=== PATIENT | female | born 1950 | race Caucasian/White ===

== ENCOUNTER 2016-11-06 16:31 | Emergency (ER) | payer OTHER ==
[2016-11-06 16:49] LABS: MANUAL DIFF NEEDED? NO
[2016-11-06 16:56] LABS: URINE CULTURE NEEDED? NO; URINE MICRO REVIEW NEEDED? NO; URINE SOURCE CLEAN CATCH
[2016-11-06 16:59] LABS: BILIRUBIN URINE NEGATIVE (NEGATIVE); BLOOD URINE NEGATIVE (NEGATIVE); COLOR YELLOW; GLUCOSE URINE NEGATIVE (NEGATIVE); LEUKOCYTES URINE NEGATIVE (NEGATIVE); NITRITE URINE NEGATIVE (NEGATIVE); PROTEIN URINE NEGATIVE (NEGATIVE); SP GRAVITY URINE 1.006; TURBIDITY URINE CLEAR (CLEAR); UROBILINOGEN URINE NORMAL (NORMAL)
[2016-11-06 17:01] LABS: UR EPITHELIAL CELLS <10 /HPF (<10); URINE BACTERIA NEGATIVE /HPF; URINE RBC <10 /HPF (<10); URINE WBC <10 /HPF (<10)
[2016-11-06 17:04] LABS: BASO% 0.3 % (0.0-0.8); EOS# 0.19 X1000 (0.0-0.7); EOS% 1.2 % (0.0-10.0); HEMATOCRIT 50.6 % (37.0-47.0); HEMOGLOBIN 17.6 g/dL (12.0-16.0); IMM GRAN# 0.04 X1000 (0.0-0.04); IMM GRAN% 0.2 % (0.0-0.5); LYMPH# 4.34 X1000 (1.2-3.4); LYMPH% 26.7 % (20.5-51.1); MCH 30.9 PG (27-31); MCHC 34.8 g/dL (33-37); MCV 88.9 FL (81-99); MONO# 1.84 X1000 (0.11-0.59); MONO% 11.3 % (1.7-9.3); MPV 10.6 FL (7.4-10.4); NEUT% 60.3 % (42.2-75.2); PLT 248 X1000 (130-400); RBC 5.69 XMIL (4.2-5.4)
[2016-11-06 17:36] LABS: AGAP 15; ALBUMIN 4.3 g/dL (3.5-5.0); ALKALINE PHOSPHATASE 119 U/L (32-104); AMYLASE 55 U/L (20-200); BUN 11 mg/dL (8-22); CALCIUM 9.7 mg/dL (8.8-10.2); CHLORIDE 100 mmol/L (98-107); COSMO 279; GOT 19 U/L (10-30); GPT 12 U/L (10-36); LIPASE 21 U/L (13-60); SODIUM 140 mmol/L (136-145); TCO2 25 mmol/L (25-35); TOTAL BILIRUBIN 0.44 mg/dL (0.20-1.00); TOTAL PROTEIN 7.3 g/dL (6.3-8.3)
[2016-11-06] MEDS ORDERED: ZOFRAN IV ONE (18:14)
[2016-11-06] MEDS ORDERED: DILAUDID IV ONE (18:14)
--- NOTE | 2016-11-06 21:13 | PROVIDER DOCUMENTATION ---
HPI-Abdominal Pain/GI Problem - General Chief Complaint: Abdominal Pain Stated Complaint: N/V Time Seen by Provider: 11/06/16 18:10 Source: patient Allergies/Adverse Reactions: Patient Allergies Allergy/AdvReac Type Severity Reaction Status Date / Time morphine Allergy Unknown Verified 11/06/16 20:44 Home Medications: Home Medication List Medication Instructions Recorded Confirmed Last Taken Type Albuterol [Albuterol Neb] 2.5 mg INH Q6H PRN PRN #0 neb 08/05/14 11/06/16 Rx ATORVAstatin [Lipitor] 10 mg PO QHS 01/21/16 11/06/16 11/05/16 History Montelukast Sodium 10 mg PO DAILY 01/21/16 11/06/16 11/06/16 History Omeprazole 40 mg PO DAILY 01/21/16 11/06/16 11/06/16 History Ropinirole [Requip] 1 mg PO QHS 01/21/16 11/06/16 11/05/16 History Trazodone [Desyrel] 100 mg PO QHS 01/21/16 11/06/16 11/05/16 History Levothyroxine [Synthroid] 75 microgm PO DAILY #30 tablet 01/22/16 11/06/1611/06 Rx Dicyclomine [Bentyl] 20 mg PO BID PRN #14 capsule 11/06/16 Unknown Rx Mirtazapine 15 mg PO HS 11/06/16 11/06/16 11/05/16 History Ondansetron [Zofran] 4 mg PO Q6H PRN PRN #20 tablet 11/06/16 Unknown Rx - History of Present Illness-ABD Nature of Presenting Problems: 66 yof that started to have Abd pain with N/V/D last night. Pain continued to get worse. Abdominal Pain Onset Location: reports: generalized abdomen Pain Radiation: reports: no radiation Quality of Pain: reports: cramping, pressure Severity in ED: reports: moderate Onset/Duration: reports: 24 hours ago Timing: reports: still present, getting worse Activities at Onset: reports: none Exposure to sick contacts?: Yes Modifying Factors: improves with: nothing Review of Systems - Adult - REVIEW OF SYSTEMS - ADULT Constitutional: reports: see HPI. denies: no symptoms reported, chills, fever, fatique, night sweats, weight gain, weight loss, other Eyes: reports: no symptoms reported. denies: see HPI, discharge, dry eyes, decreased vision, blurred vision, double vision, eye pain, redness, other Ears, Nose, Mouth & Throat: reports: no symptoms reported. denies: see HPI, ear discharge, ear pain, hearing loss, tinnitus, epistaxis, sinus problem, nose pain, loose teeth, mouth/dental pain, mouth swelling, hoarseness, throat pain, throat swelling, other Cardiovascular: reports: no symptoms reported. denies: see HPI, chest pain, edema, heart murmur, irregular heart rate, orthopnea, palpitations, poor circulation, PND, syncope, other Respiratory: reports: no symptoms reported. denies: see HPI, chronic cough, cough, dyspnea on exertion, excessive sputum production, hemoptysis, pleurisy, shortness of breath, wheezing, other Gastrointestinal: reports: see HPI, abdominal pain, diarrhea, nausea, vomiting. denies: no symptoms reported, hematemesis, constipation, difficulty swallowing , frequent heartburn, poor appetite, rectal bleeding, other Genitourinary: reports: no symptoms reported. denies: see HPI, dysuria, discharge, frequency, flank pain, frequent UTI's, hematuria, hesitency, incontinence, urinary retention, urgency, other Musculoskeletal: reports: no symptoms reported. denies: see HPI, bone pain, back pain, frequent leg cramps, joint pain, joint swelling, muscle aches, muscle weakness, neck pain, other Integumentary: reports: no symptoms reported. denies: see HPI, hives, hair loss , itching, mole changes, nail changes, rash, skin sores/ulcer, skin thickening, other Neurological: reports: no symptoms reported. denies: see HPI, ataxia, dizziness /vertigo, headache/migraines, loss of balance, numbness, paresthesia, seizure, slurred speech, syncope, tremors, other Psychiatric: reports: no symptoms reported. denies: see HPI, anxiety, anti- depressant use, alcohol/drug dependence, depression, emotional problems, insomnia, panic attacks, suicidal thoughts, other Endocrine: reports: no symptoms reported. denies: see HPI, change in skin pigment, excessive sweating, goiter, cold intolerance, heat intolerance, increased hunger, increased thirst, polyuria, other Hematologic/Lymphatic: reports: no symptoms reported. denies: see HPI, blood clots, easy bruising, low blood count, lymphedema, prolonged bleeding, swollen lymph nodes, transfusions, other All Other Systems: Reviewed and Negative Past History - Adult - PAST MEDICAL HISTORY-ADULT Review of Records: reports: Old Records Reviewed, Nursing Assessment Review, Medications Reviewed, Social history reviewed & non-contributory. Cardiovascular: reports: HTN, hyperlipidemia Respiratory: reports: COPD Gastrointestinal: reports: GERD Obstetrical/Gynecological: reports: denies history Genitourinary: reports: denies history Musculoskeletal: reports: denies history Neurological: reports: denies history Psychiatric: reports: denies history Endocrine/Immune: reports: thyroid disorder - PRIOR SURGERIES/PROCEDURES Surgical/Procedure History: reports: cholecystectomy, BTL, , bowel surgery (colostomy) - IMMUNIZATION STATUS Childhood Immunizations: See Nurse Assessment Flu Vaccine: See Nurse Assessment - FAMILY HISTORY Family History: reviewed, not pertinent Physical Exam-General - PHYSICAL EXAM-ADULT Initial Vital Signs Reviewed: Yes - CONSTITUTIONAL General Appearance: appears well, alert, no apparent distress. negative: mild distress, moderate distress, severe distress, cachetic, obese, thin, anxious, lethargic, slow to respond, obtunded, combative, other - EYES Eyes: PERRL/EOMI, pink conjunctivae. negative: fundi clear, no AV nicking, anisocoria, conjuctival exudate, EOM palsy, meningismus, pale conjunctivae, photophobia, sclera injected, scleral icterus, subconjunctival hemorrhage, sunken eyes, other - HEAD, EARS, NOSE, MOUTH & THROAT HENMT: normocephalic/atraumatic, moist mucous membranes, normal ENT inspection, TMs normal, pharynx normal. negative: angioedema, dental decay, hearing deficit , pharyngeal erythema, tonsillar exudate, TM abnormal, TM obscurred by cerumen, frontal tenderness, maxillary tenderness, other - NECK Neck: non-tender, full range of motion, supple, normal inspection. negative: Brudzinski's sign, carotid bruit, C-spine tenderness, limited range of motion, lymphadenopathy, meningismus, trachial deviation, tender lateral, tender midline , thyromegaly, other - RESPIRATORY Respiratory: chest non-tender, lungs clear, normal breath sounds, no pleuratic chest pain, no respiratory distress, no accessory muscle use. negative: respiratory distress, decreased breath sounds, accessory muscle use, crackles, rales, rhonchi, stridor, wheezing, dull on percussion, prolonged expiration, pain on inspiration, plerual rub, retractions, splinting, decreased rate, increased rate, crepitus, other - CARDIOVASCULAR Cardiovascular: normal peripheral pulses, regular rate, rhythm, no edema, no gallop, no JVD, no murmur. negative: JVD, bradycardia, tachycardia, diastolic murmur, systolic murmur, gallop/S3, gallop/S4, extra beats, friction rub, irregularly irregular, PMI displaced laterally, other - CHEST (BREASTS) Chest/Breast: deferred - GASTROINTESTINAL (ABDOMEN) Abdominal Exam: normal bowel sounds, soft, no organomegaly, no pulsatile mass, tenderness (Generalized). negative: non tender, abdominal bruit, abnormal bowel sounds, distended, guarding, rigid, rebound, hernia, mass, hepatomegaly, spleenomegaly, McBurney's point tenderness, Alex's sign, obturator sign, prominent aortic pulsations, psoas, Rovsing's sign, other - GENITOURINARY Female Genitalia/Pelvic Exam: deferred. negative: external exam normal, speculum exam normal, bimanual exam normal, no cerv. motion tender, no masses, active bleeding, blood, cervicitis, discharge, herpes-like ulcerations, lesions , mass, tender w/ cervical motion, tender adnexa, tender uterus, ulcers, other Rectal Exam: deferred. negative: normal exam, normal rectal tone, black stool, blood streaked stool, decreased tone, hemorrhoids, mass, prostate enlarged/ nodule, tenderness, other - LYMPHATIC Lymphatic: no adenopathy. negative: axilla node tender, cervical node tenderness, inguinal node tender, enlargement, striations, streaking, other - MUSCULOSKELETAL Back Exam: normal inspection, no CVA tenderness, no vertebral tenderness. negative: CVA tenderness, decreased range of motion, ecchymosis, kyphosis, lordosis, muscle spasm, scoliosis, swelling, vertebral tenderness, other Extremity: normal range of motion, non-tender, normal gait, normal inspection, no pedal edema, no calf tenderness, normal capillary refill. negative: pelvis stable, abnormal NV exam, calf tenderness, deformity, erythema, inflammation, joint effusion, pulse deficit, pedal edema, slow capillary refill, swelling, tenderness, other - SKIN Integumentary: normal color, normal turgor, warm/dry. negative: abrasion(s), blanching, cyanosis, diaphoresis, decubitus, dependent lividity, ecchymosis, embolic lesions, erythema, signs of IVDA, jaundice, laceration(s), mottled, pallor, petechiae, purpura, rash, swelling, tenderness, warm, zoster-like rash, other - NEUROLOGIC Neurologic: grossly normal, no motor/sensory deficits. negative: hotel maid II-XII nml as tested, abnormal cerebellar tests, abnormal hotel maid II-XII, abnormal gait, aphasia, EOM palsy, facial droop, focal weakness, motor weakness, sensory deficit, negative romberg's sign, positive romberg's sign, other - PSYCHIATRIC Psych/Mental Status: normal mood/affect, normal thought content, normal thought process, oriented x 3. negative: disoriented x 3, anxious, disheveled, depressed affect, paranoid, tearful, other Progress - PLAN OF CARE/RESULTS Progress/Plan/Lab Results: Laboratory Tests 11/06/16 11/06/16 11/06/16 16:43 16:43 16:50 WBC 16.25 H RBC 5.69 H Hgb 17.6 H Hct 50.6 H MCV 88.9 MCH 30.9 MCHC 34.8 RDW Std Deviation 15.9 H Plt Count 248 MPV 10.6 H Immature Gran % (Auto) 0.2 Neut % (Auto) 60.3 Lymph % (Auto) 26.7 [place] % (Auto) 11.3 H Eos % (Auto) 1.2 Baso % (Auto) 0.3 Immature Gran # (Auto) 0.04 Neut # (Auto) 9.79 H Lymph # (Auto) 4.34 H [place] # (Auto) 1.84 H Eos # (Auto) 0.19 Baso # (Auto) 0.05 Sodium 140 Potassium 4.0 Chloride 100 Carbon Dioxide 25 Anion Gap 15 BUN 11 Creatinine 0.8 Estimated GFR/1.73 m2 > 60 BUN/Creatinine Ratio 14 Glucose 105 H Calculated Osmolality 279 Calcium 9.7 Total Bilirubin 0.44 AST 19 ALT 12 Alkaline Phosphatase 119 H Total Protein 7.3 Albumin 4.3 Globulin 3.0 Albumin/Globulin Ratio 1.4 Amylase 55 Lipase 21 Urine Source CLEAN CATCH Urine Color YELLOW Urine Turbidity CLEAR Urine pH 7.0 Ur Specific [place] 1.006 Urine Protein NEGATIVE Ur Glucose (Stick) NEGATIVE Ur Ketones (Stick) NEGATIVE Urine Blood NEGATIVE Urine Nitrite NEGATIVE Urine Bilirubin NEGATIVE Urobilinogen Dipstick NORMAL Urine Leukocytes NEGATIVE Urine WBC (Auto) <10 Urine RBC (Auto) <10 U Epithel Cells (Auto) <10 Urine Bacteria (Auto) NEGATIVE Orders Category Date Time Status Saline Loc NOW Care 11/06/16 18:14 Active ABDOMEN/PELVIS W/CONTRAST [CT] Stat Exams 11/06/16 18:13 Taken AMYLASE [CHEM] Stat Lab 11/06/16 16:43 Completed CBC WITH ELECTRONIC DIFF [HEME] Stat Lab 11/06/16 16:43 Completed COMPREHENSIVE METABOLIC PANEL [CHEM] Stat Lab 11/06/16 16:43 Completed LIPASE [CHEM] Stat Lab 11/06/16 16:43 Completed URINALYSIS W/POSS RFLX CULT [URINALYSIS] Stat Lab 11/06/16 16:50 Completed Hydromorphone [Dilaudid] Med 11/06/16 18:14 Discontinued 1 mg IV NOW ONE Ondansetron [Zofran] Med 11/06/16 18:14 Discontinued 4 mg IV NOW ONE - CT/MRI 1 CT Study: Abdomen Impression: Abnormal (Inflammation around intestines. Appears to look like colitis due to viral infection. Read by radiologist) Departure - Departure Time of Disposition Order: 21:10 DIAGNOSIS: Gastroenteritis and colitis, viral Disposition: HOME 01 Certified Medical Emergency: Emergent Condition: Stable Additional Instructions: Drink plenty of fluids to prevent dehydration. ED Follow Up Instructions: You have been treated by a care provider in the Emergency Department. These instructions are being provided to you so you can have an understanding of how to care for yourself upon discharge. Upon discharge from the Emergency Department, you are responsible for making arrangements for follow-up care by a physician of your choice. Take all prescribed medications as directed. Return to the Emergency Department immediately for any new or worsening symptoms. You may call the Physician Referral phone number at [phone] to obtain a list of Physicians who are taking new patients. Prescriptions: Dicyclomine [Bentyl] 20 mg PO BID PRN #14 capsule PRN Reason: Abdominal pain Ondansetron [Zofran] 4 mg PO Q6H PRN PRN #20 tablet PRN Reason: Nausea Referrals: Moshe Newell MD [Primary Care Provider] - Instructions: Gastritis, Adult, [id number], Colitis Attestation - Physician/ SRIDHAR Attestation Patient care was provided by Advanced Practice Provider:: Yes Advanced Practice Provider:: Rodrigue Pond Advanced Practice Provider documentation review:: The Mid-level provider documentation, treatment plan and medical decision making was reviewed by the physician who agrees with all treatment and medical decision making by the MLP.
[2016-11-06 21:39] VITALS: BP 94/63
--- NOTE | 2016-11-07 10:24 | Diag Imaging Result Document ---
PROCEDURE NAME: ABDOMEN/PELVIS W/CONTRAST - 11/06/2016 CT OF THE ABDOMEN WITH INTRAVENOUS CONTRAST: FINDINGS: There is fibrosis in the lingula which was also present on 10/07/2016. There is atherosclerotic calcification in the aorta and its branches. There is mild infrarenal abdominal aortic dilatation to a maximum dimension of 1.9 cm. This has not changed appreciably since the previous study. There is a small hiatal hernia. There has been a previous ventral hernia repair. There is still a defect on the left side in the upper pelvis through which a loop of small bowel herniates. This finding was also present at the time of the previous study of 10/07/2016 and has not changed appreciably. The liver, spleen, adrenal glands, and pancreas are unremarkable in appearance. There is some scarring in the left kidney which may be due to previous pyelonephritis or vascular disease. These findings were also present at the time of the previous contrast study of 08/27/2016. CT OF THE PELVIS WITH INTRAVENOUS CONTRAST: FINDINGS: There is fluid in the ascending colon. Postsurgical changes are present in the colon and small bowel. There is fecalized contents in a dilated loop of small bowel in the pelvis. This is similar in appearance to the previous study of 08/27/2016 and that of 10/07/2016. 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 Minimal pelvic fluid is present. There is some gas in the rectum. The regional skeleton is stable in appearance. IMPRESSION: Postsurgical changes. Persistent ventral hernia. The apparent stasis and dilatation of the distal small bowel loops which has remained relatively constant since at least 08/27/2016. Presumably, this is at least in part due to a distal stricture. There has actually been slight improvement with respect to the dilatation of the small bowel since the previous study of 10/07/2016.
== END 2016-11-06 21:58 | disposition home or self-care (01) ==
LOC: ED 16:31
DX: A08.4 Viral intestinal infection, unspecified (principal); K43.9 Ventral hernia without obstruction or gangrene; R10.84 Generalized abdominal pain; R11.2 Nausea with vomiting, unspecified; R19.7 Diarrhea, unspecified; R10.817 Generalized abdominal tenderness; I10 Essential (primary) hypertension; E78.5 Hyperlipidemia, unspecified; Z79.899 Other long term (current) drug therapy; J44.9 Chronic obstructive pulmonary disease, unspecified; K21.9 Gastro-esophageal reflux disease without esophagitis; E07.9 Disorder of thyroid, unspecified; Z93.3 Colostomy status
CPT/HCPCS: 74177; 80053; 81001; 82150; 83690; 85025; J1170; J2405; Q9967

== ENCOUNTER 2016-12-29 11:33 | Observation (INO) ==
[2016-12-29] MEDS ORDERED: ZOFRAN IV PRN (12:50)
--- NOTE | 2016-12-29 13:21 | Diag Imaging Result Document ---
PROCEDURE NAME: CHEST-2 VIEWS - 12/29/2016 CHEST X-RAY, 2 VIEWS: COMPARISON: 08/09/2016. FINDINGS: Stable COPD. Stable calcified granuloma in the left lung base. No new or focal infiltrates. Heart size is grossly normal. IMPRESSION: Advanced COPD. No acute disease.
--- NOTE | 2016-12-29 13:44 | Diag Imaging Result Document ---
PROCEDURE NAME: ABDOMEN/PELVIS W/O CONTRAST - 12/29/2016 CT ABDOMEN AND PELVIS WITHOUT CONTRAST: COMPARISON: 11/06/2016. FINDINGS: There is mild fibrosis involving the lingula that is stable. There appears to have been a prior cholecystectomy. There are calcified granulomata in the spleen. The right kidney is located in the pelvis. The left kidney is normally situated. There appears to have been a prior ventral wall hernia repair and surgical mesh is in place. There is a recurrent small hernia adjacent to the surgical mesh on the left that contains a loop of small bowel; however, it is stable as compared to the previous study. Similar to previous studies, there is some distention of multiple loops of small bowel. The small bowel contains feculent material like the previous study. As stated previously, this is probably at least, in part, due to partial small bowel obstruction. There are several bowel staple lines indicating prior bowel surgery. There has been a previous hysterectomy. No significant free gas or free fluid is identified. Otherwise, the abdomen and pelvis is essentially stable as compared to the fairly recent previous study. IMPRESSION: 1. Left paracentral ventral wall hernia containing a loop of bowel as well as multiple moderately distended loops of small bowel containing feculent material that is presumed due to at least partial bowel obstruction. However, it should be noted that this is essentially stable as compared to a couple previous studies. 2. Otherwise, the abdomen and pelvis are essentially stable.
[2016-12-29] MEDS: DILAUDID IV PRN ×2 (14:34→20:25)
[2016-12-29] MEDS: PROTONIX IV SCH (14:35)
[2016-12-29] MEDS: LOVENOX SUBQ SCH (14:35)
[2016-12-29] MEDS: SODIUM CHLORIDE 0.9% INJ SCH (14:35)
[2016-12-29] MEDS: NS 1,000 ML IV SCH (14:35)
[2016-12-29 15:23] LABS: URINE CULTURE NEEDED? NO; URINE MICRO REVIEW NEEDED? NO; URINE SOURCE CLEAN CATCH
[2016-12-29 15:36] LABS: BILIRUBIN URINE NEGATIVE (NEGATIVE); BLOOD URINE NEGATIVE (NEGATIVE); COLOR YELLOW; GLUCOSE URINE NEGATIVE (NEGATIVE); LEUKOCYTES URINE NEGATIVE (NEGATIVE); NITRITE URINE NEGATIVE (NEGATIVE); PROTEIN URINE NEGATIVE (NEGATIVE); SP GRAVITY URINE 1.014; TURBIDITY URINE CLEAR (CLEAR); UROBILINOGEN URINE NORMAL (NORMAL)
[2016-12-29 15:38] LABS: UR EPITHELIAL CELLS <10 /HPF (<10); URINE BACTERIA NEGATIVE /HPF; URINE RBC <10 /HPF (<10); URINE WBC <10 /HPF (<10)
[2016-12-29 16:00] LABS: MANUAL DIFF NEEDED? NO
[2016-12-29 16:04] LABS: BASO% 0.5 % (0.0-0.8); EOS# 0.15 X1000 (0.0-0.7); EOS% 1.4 % (0.0-10.0); HEMATOCRIT 49.8 % (37.0-47.0); HEMOGLOBIN 16.9 g/dL (12.0-16.0); IMM GRAN# 0.02 X1000 (0.0-0.04); IMM GRAN% 0.2 % (0.0-0.5); LYMPH# 3.69 X1000 (1.2-3.4); MCHC 33.9 g/dL (33-37); MCV 91.4 FL (81-99); MONO# 1.27 X1000 (0.11-0.59); MPV 10.2 FL (7.4-10.4); NEUT% 50.9 % (42.2-75.2); PLT 255 X1000 (130-400); RBC 5.45 XMIL (4.2-5.4)
[2016-12-29 16:13] LABS: INR 1.03; PROTIME 10.8 Seconds (9.2-11.7); PTT 30.1 Seconds (22.0-36.0)
[2016-12-29 16:34] LABS: AGAP 17; ALBUMIN 3.9 g/dL (3.5-5.0); ALKALINE PHOSPHATASE 120 U/L (32-104); AMYLASE 55 U/L (20-200); BUN 12 mg/dL (8-22); CALCIUM 8.7 mg/dL (8.8-10.2); CHLORIDE 103 mmol/L (98-107); COSMO 286; GOT 18 U/L (10-30); GPT 15 U/L (10-36); LIPASE 25 U/L (13-60); MAGNESIUM 2.1 mg/dL (1.5-2.7); POTASSIUM 3.8 mmol/L (3.5-5.1); SODIUM 143 mmol/L (136-145); TCO2 23 mmol/L (25-35); TOTAL BILIRUBIN 0.42 mg/dL (0.20-1.00)
[2016-12-29] MEDS: DUONEB (A & A) INH SCH ×2 (19:45→23:10)
[2016-12-29] MEDS: REMERON PO SCH (20:24)
[2016-12-29] MEDS: REQUIP PO SCH (20:24)
[2016-12-29] MEDS: LIPITOR PO SCH (20:24)
--- NOTE | 2016-12-29 21:21 | HISTORY AND PHYSICAL ---
CHIEF COMPLAINT: Abdominal pain. HISTORY OF PRESENT ILLNESS: Ms. Hester is a 66-year-old white female patient complaining of pain in the abdomen going on for 2 days. The pain is moderate in intensity, cramping in nature. Started 2 days ago. Gradually getting worse. The patient claims night before last she vomited multiple times. Last night, the pain was so intense she could not rest or sleep at all. She stayed awake all night because of the pain. Patient took her pain medicine which was Percocet 10, 2-3 times a day without significant relief. The patient had some nausea. She did have 1 loose bowel movement. Mild abdominal distention. Chills, but no documented fever. The patient had multiple abdominal surgeries done in the past. She does have incisional hernia. No bleeding per rectum. No hematemesis or melena. The patient came to office for evaluation. The patient had significant tenderness in the lower abdomen. The patient was in moderate distress. Significant pain, not responding to her outpatient treatment. She had history of recurrent small-bowel obstruction. I decided to admit the patient for observation. The patient denied any dysuria or hematuria. No vaginal discharge, spotting, bleeding. Denied any leg swelling. The patient does have chronic cough with scanty sputum production, which was yellowish white in color. No headache no runny nose, stuffy nose, sinus drainage. The patient does have arthritic pain in the back, at times in the knee. No joint swelling or redness. No heat or cold intolerance, unquantified weight loss. No focal numbness, tingling, weakness. Claims to be under stress. The patient had history of enterovesical fistula, but it is healed. No active drainage currently. No dysphagia or odynophagia. No further history available at this time. ALLERGIES: Patient is allergic to morphine. HOME MEDICATION: Albuterol inhaler, Bentyl, Prilosec, Zofran, Lipitor, Synthroid, Remeron, Singulair, Requip, trazodone. PAST MEDICAL HISTORY: Restless legs syndrome. Rhinitis. Insomnia. Hypothyroidism. Hyperlipidemia. Osteoarthritis. Gastritis. Reflux disease. 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 Osteoarthritis. COPD. Hypertension. PERSONAL HISTORY: Single. Does smoke. Denied alcohol or substance abuse. FAMILY HISTORY: Significant for mother with coronary artery disease, congestive heart failure, father with COPD and prostate cancer. Sister with COPD, hypertension and hyperlipidemia. PHYSICAL EXAMINATION: GENERAL: Middle-aged white female patient in mild distress. VITAL SIGNS: On admission, blood pressure 122/74, pulse is 82, respiration 20, temperature 98.6 degrees. SKIN: Senile turgor. No rash or petechiae. HEENT: Head atraumatic, normocephalic. [place] conjunctivae. Anicteric sclerae. Extraocular muscle movement normal. Fundus sharp discs. Ears and nose benign. NECK: Supple. No JVD, thyromegaly or lymphadenopathy. CHEST: Bilateral good air entry present. Bilateral expiratory wheezing. No rales. CARDIOVASCULAR: S1 and S2 heard. No gallop or thrill. ABDOMEN: Soft. No distention. Multiple scars of previous surgery. Diffuse abdominal tenderness, more so in the lower abdomen. The patient does have incisional hernia. RECTAL: Exam deferred. Some voluntary guarding in the lower abdomen. EXTREMITIES: No cyanosis, clubbing. No acute DVT. TELEPHONE STERILIZER: Alert, awake, able to move all 4 limbs. Vague tenderness lumbosacral spine. LABORATORY DATA: WBC count 10.55, hemoglobin 16.9, hematocrit 49.8, platelet count 255,000. Electrolytes fairly benign. CO2 was 23, blood sugar 125, calcium 8.7, magnesium 2.1, potassium 3.8. PT/INR 1.03, PTT was 30.1. Amylase and lipase were normal. Urinalysis was benign. IMAGING: I did CT scan of the abdomen and pelvis which did reveal left paracentral ventral wall hernia containing a loop of bowel as well as multiple moderately distended loops of small bowel containing fecal material, partial small bowel obstruction. Chest x-ray: Advanced COPD. No acute disease. CONSIDERATION: 1. Partial small bowel obstruction. 2. Ventral hernia. 3. Chronic obstructive pulmonary disease. 4. Hypothyroidism. 5. Chronic pain. 6. Constipation. 7. Gastritis and reflux disease. PLAN: Admit the patient. IV hydration. Proton pump inhibitor. Continue home medicine. Pain management. Overall plan discussed at length with the patient. She is in agreement. Discussed smoking cessation. cc: Moshe Newell MD
[2016-12-30] MEDS: DUONEB (A & A) INH SCH ×6 (03:08→23:28)
[2016-12-30] MEDS: DILAUDID IV PRN ×5 (05:37→22:19)
[2016-12-30] MEDS: SYNTHROID PO SCH (06:23)
--- NOTE | 2016-12-30 07:24 | PROGRESS NOTE ---
DATE: 12/30/2016 SUBJECTIVELY: Ms. Hester is feeling some better. She still has pain in the lower abdomen, cramping in nature, though less intense. She denied any dysuria or hematuria. Mild nausea. No vomiting. No chest pain or palpitations. Mild cough. No expectoration. OBJECTIVE: Vital Signs: Her vital signs reviewed. Neck: Supple. No JVD. Lungs: Bilateral good air entry present. Occasional wheezing. CVS: S1 and S2 heard. Abdomen: Soft, globular. Bowel sounds present. Mild tenderness in lower abdomen. No guarding or rigidity. Extremities: No cyanosis, clubbing. No acute DVT. CHIROPRACTIC PHYSICIAN: Alert, awake able to move all 4 limbs. CONSIDERATION: 1. Partial small-bowel obstruction. 2. Chronic obstructive pulmonary disease. 3. Hypothyroidism. 4. Hyperlipidemia. DIAGNOSTIC DATA: Labs ordered for today, results are pending. X-ray and CT scan results reviewed. PLAN: I am going to advance diet to full liquid diet. Ambulate the patient in the room and hallway. Continue rest of the treatment. cc: Moshe Newell MD
[2016-12-30] MEDS: SINGULAIR PO SCH (08:38)
[2016-12-30] MEDS: NS 1,000 ML IV SCH ×2 (09:48)
[2016-12-30] MEDS: PROTONIX IV SCH (13:21)
[2016-12-30] MEDS: LOVENOX SUBQ SCH (13:21)
[2016-12-30] MEDS: SODIUM CHLORIDE 0.9% INJ SCH (13:54)
[2016-12-30] MEDS: DESYREL PO SCH ×2 (22:13)
[2016-12-30] MEDS: LIPITOR PO SCH (22:13)
[2016-12-30] MEDS: REQUIP PO SCH (22:13)
[2016-12-30] MEDS: REMERON PO SCH (22:14)
[2016-12-31] MEDS: DUONEB (A & A) INH SCH ×3 (03:38→11:13)
[2016-12-31] MEDS: DILAUDID IV PRN (03:43)
[2016-12-31] MEDS: NS 1,000 ML IV SCH (03:43)
[2016-12-31] MEDS: SYNTHROID PO SCH (06:53)
[2016-12-31 06:58] LABS: MANUAL DIFF NEEDED? NO
[2016-12-31 07:01] LABS: BASO% 0.9 % (0.0-0.8); EOS# 0.45 X1000 (0.0-0.7); EOS% 6.7 % (0.0-10.0); HEMOGLOBIN 14.3 g/dL (12.0-16.0); LYMPH% 40.1 % (20.5-51.1); MCH 30.8 PG (27-31); MCHC 32.5 g/dL (33-37); MCV 94.6 FL (81-99); MONO# 0.76 X1000 (0.11-0.59); MONO% 11.3 % (1.7-9.3); PLT 176 X1000 (130-400); RBC 4.65 XMIL (4.2-5.4)
[2016-12-31] MEDS ORDERED: PERCOCET-5 PO PRN (07:08)
[2016-12-31 07:24] LABS: AGAP 13; ALBUMIN 3.2 g/dL (3.5-5.0); ALKALINE PHOSPHATASE 94 U/L (32-104); BUN 4 mg/dL (8-22); CALCIUM 8.1 mg/dL (8.8-10.2); CHLORIDE 105 mmol/L (98-107); COSMO 281; GOT 16 U/L (10-30); GPT 12 U/L (10-36); POTASSIUM 4.1 mmol/L (3.5-5.1); SODIUM 143 mmol/L (136-145); TCO2 25 mmol/L (25-35); TOTAL BILIRUBIN 0.33 mg/dL (0.20-1.00); TOTAL PROTEIN 6.1 g/dL (6.3-8.3)
--- NOTE | 2016-12-31 08:05 | Diag Imaging Result Document ---
PROCEDURE NAME: ABDOMEN FLAT/UPRIGHT - 12/31/2016 FLAT AND UPRIGHT RADIOGRAPH OF THE ABDOMEN AND PELVIS, TWO VIEWS: COMPARISON: 10/09/2016 FINDINGS: There are nonspecific bowel gas and stool patterns. Almost all of the gas is colonic. There is no high-grade distention to indicate obstruction. There is no evidence of large volume free abdominal gas. Metallic staple lines project over the pelvis. IMPRESSION: Nonspecific abdomen.
[2016-12-31 08:36] VITALS: BP 122/73
[2016-12-31] MEDS: SINGULAIR PO SCH (09:59)
--- NOTE | 2016-12-31 11:11 | PROGRESS NOTE ---
DATE: 12/31/2016 SUBJECTIVELY: Ms. Hester is feeling better. Nausea and vomiting improved. Abdominal pain is getting better. The patient is passing gas. She does feel hungry and asking for regular food. Ambulating well. No fever or chills. Does have a chronic cough. PHYSICAL EXAMINATION: Vital Signs: Vital signs noted which are stable. Lungs: Bilateral good air entry present. Occasional wheezing. CVS: S1 and S2 heard. Abdomen: Soft, globular. Vague tenderness, lower abdomen, which is chronic. Extremities: No cyanosis, clubbing. No acute DVT. HEEL VARNISHER: Alert, awake. Able to move all 4 limbs. IMPRESSION AND PLAN: The patient admitted with partial small bowel obstruction. Clinically, patient is doing much better. We will continue current treatment. Advance diet. I am going to do abdominal x-ray today. If she continued to do well, I am planning to discharge her home today. Her other problems include chronic obstructive pulmonary disease, hypothyroidism, gastritis, and reflux disease. Overall discharge plan discussed at length with the patient and she is in agreement. cc: Moshe Newell MD
== END 2016-12-31 13:30 | disposition home or self-care (01) ==
LOC: DIRADM → EDIPHOLD 12:44 → 3N 13:53
PROVIDERS: ADMIT Internal Medicine; ATTEND Internal Medicine

== ENCOUNTER 2017-04-20 11:21 | Observation (INO) ==
[2017-04-20] MEDS ORDERED: ZOFRAN IV PRN (13:16)
[2017-04-20] MEDS: PROTONIX IV SCH (13:56)
[2017-04-20] MEDS: NS 1,000 ML IV SCH ×2 (13:56→21:21)
[2017-04-20] MEDS: SODIUM CHLORIDE 0.9% INJ SCH (13:56)
[2017-04-20] MEDS: DILAUDID IV PRN ×2 (13:57→18:21)
[2017-04-20] MEDS: LOVENOX SUBQ SCH (13:57)
--- NOTE | 2017-04-20 14:06 | Diag Imaging Result Doc PS360 ---
EXAM: ABDOMEN/PELVIS W/O CONTRAST INDICATION: Abdomen pain TECHNIQUE: COMPARISON: 12/29/2016 FINDINGS: There is stable mild bibasilar fibrotic change in the lungs. There are a few calcified granulomata in the spleen. There appears to have been a prior cholecystectomy. The liver is grossly unremarkable. The adrenal glands appear normal. The pancreas appears grossly normal. The right kidney is located in the pelvis. The kidneys are stable and are grossly unremarkable, otherwise. There are multiple metallic pradip associated with the colon and loops of bowel in the pelvis. There is feculent material seen in loops of small bowel low in the pelvis and there are several loops of small bowel in the pelvis exhibiting mild to moderate gaseous distention with air-fluid levels. Partial small bowel obstruction cannot be excluded. There is evidence of a ventral abdominal wall hernia repair. Adjacent to the surgical mesh on the left there is a herniated loop of small bowel that appear stable as compared to the previous study. The urinary bladder is grossly unremarkable. There has been a previous hysterectomy. IMPRESSION: 1.Left paracentral ventral abdominal wall hernia containing a loop of bowel that is very similar to the previous study. 2.Feculent material and moderately distended loops of small bowel in the pelvis that is also fairly similar to the previous study. Consider at least partial small bowel obstruction. 3.Other incidental/nonacute findings detailed above. Electronically signed by Danial Boyer 04/20/2017 2:04 PM
--- NOTE | 2017-04-20 14:27 | EKG Report ---
Test Performed on : 04/20/2017 1:52:15 PM Test Reason : abdomen pain Blood Pressure : / mmHG Vent. Rate : 071 BPM Atrial Rate : 071 BPM P-R Int : 132 ms QRS Dur : 080 ms QT Int : 428 ms P-R-T Axes : 080 -34 043 degrees QTc Int : 465 ms Normal sinus rhythm. with sinus arrhythmia. Left axis deviation Abnormal ECG When compared with ECG of 23-JAN-2017 21:12, No significant change was found Confirmed by Fabrice Barrera DO ([id number]) on 04/24/2017 7:44:37 PM
[2017-04-20] MEDS: DUONEB (A & A) INH SCH ×2 (15:10→22:13)
--- NOTE | 2017-04-20 15:11 | Diag Imaging Result Doc PS360 ---
EXAM: FLAT/UPRIGHT ABD/1 VIEW CHEST INDICATION: Abdomen Pain TECHNIQUE: 3 views COMPARISON: Chest radiograph dated 01/23/2017 and abdominal radiograph dated 12/31/2016 FINDINGS: There is gaseous distention of several loops of bowel throughout the abdomen, mainly in the pelvis that are nonspecific. There are surgical pradip projecting of the pelvis. There is no evidence of large volume free abdominal gas. There is no evidence of organomegaly. There is mild subsegmental atelectasis versus scarring at the lung bases. There is a calcified granuloma at the left lung base, stable. The lungs are grossly clear, otherwise. The cardiomediastinal silhouette and central vasculature are grossly unremarkable. IMPRESSION: 1.Nonspecific mild to moderate gaseous distention of bowel throughout the abdomen. 2.Mild subsegmental atelectasis versus scarring at the lung bases. Electronically signed by Danial Boyer 04/20/2017 3:08 PM
[2017-04-20 15:12] LABS: MANUAL DIFF NEEDED? NO
[2017-04-20 15:19] LABS: BASO% 0.4 % (0.0-0.8); EOS# 0.08 X1000 (0.0-0.7); EOS% 0.8 % (0.0-10.0); HEMATOCRIT 49.2 % (37.0-47.0); LYMPH# 2.87 X1000 (1.2-3.4); MCH 30.7 PG (27-31); MCHC 34.6 g/dL (33-37); MONO# 1.15 X1000 (0.11-0.59); MONO% 11.6 % (1.7-9.3); MPV 11.6 FL (7.4-10.4); NEUT% 58.2 % (42.2-75.2); PLT 184 X1000 (130-400); RBC 5.53 XMIL (4.2-5.4)
[2017-04-20 15:26] LABS: INR 1.02; PROTIME 10.7 Seconds (9.2-11.7); PTT 27.9 Seconds (22.0-36.0)
[2017-04-20 15:33] LABS: AGAP 16; ALBUMIN 4.3 g/dL (3.5-5.0); ALKALINE PHOSPHATASE 118 U/L (32-104); BUN 10 mg/dL (8-22); CALCIUM 9.3 mg/dL (8.8-10.2); CHLORIDE 102 mmol/L (98-107); COSMO 282; GOT 16 U/L (10-30); GPT 10 U/L (10-36); MAGNESIUM 1.5 mg/dL (1.5-2.7); POTASSIUM 3.5 mmol/L (3.5-5.1); SODIUM 142 mmol/L (136-145); TCO2 24 mmol/L (25-35); TOTAL BILIRUBIN 0.55 mg/dL (0.20-1.00); TOTAL PROTEIN 6.8 g/dL (6.3-8.3)
[2017-04-20 16:55] LABS: URINE CULTURE NEEDED? NO; URINE MICRO REVIEW NEEDED? NO; URINE SOURCE CLEAN CATCH
[2017-04-20 16:58] LABS: BILIRUBIN URINE NEGATIVE (NEGATIVE); BLOOD URINE NEGATIVE (NEGATIVE); COLOR YELLOW; GLUCOSE URINE NEGATIVE (NEGATIVE); LEUKOCYTES URINE NEGATIVE (NEGATIVE); NITRITE URINE NEGATIVE (NEGATIVE); PROTEIN URINE TRACE mg/dL (NEGATIVE); SP GRAVITY URINE 1.021; TURBIDITY URINE CLEAR (CLEAR); UROBILINOGEN URINE NORMAL (NORMAL)
[2017-04-20 16:59] LABS: UR EPITHELIAL CELLS <10 /HPF (<10); URINE BACTERIA NEGATIVE /HPF; URINE RBC <10 /HPF (<10); URINE WBC <10 /HPF (<10)
[2017-04-20] MEDS ORDERED: DUONEB (A & A) INH PRN (17:29)
[2017-04-20] MEDS ORDERED: MILK OF MAGNESIA PO ONE (17:31)
[2017-04-20] MEDS ORDERED: MIRALAX PO ONE (17:31)
--- NOTE | 2017-04-20 19:46 | HISTORY AND PHYSICAL ---
CHIEF COMPLAINT: Abdominal pain. HISTORY OF PRESENT ILLNESS: Ms. Hester is a 66-year-old white female patient complaining of pain in the abdomen that started last night around 1 a.m., crampy pain, moderate in intensity, at times severe. Pain is associated with nausea. The patient vomited 3-4 times. The patient also had loose bowel movement. The patient described her presentation similar to when she had partial small bowel obstruction. The patient did have chills but no documented fever. The patient came to the office for evaluation. The patient was in moderate distress due to pain. Because of her vomiting and some diarrhea, I decided to admit the patient for observation. The patient also has tenderness in the lower abdomen and a ventral hernia. The patient denied any typical chest pain, palpitation, orthopnea, or PND. She does have cough with scanty sputum production. No hemoptysis. Denied any headache. No runny nose, stuffy nose, sinus drainage. Denied any sore throat. Does have vague pain in the lower back. 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 No new weakness, numbness, tingling. No leg swelling. No dysuria or hematuria. No vaginal discharge, spotting, or bleeding. No unusual weight loss or weight gain. ALLERGIES: Patient is allergic to morphine. HOME MEDICATION: Includes Lipitor, nebulizer treatment, Plavix, Synthroid, Remeron, Singulair, Requip. PAST MEDICAL HISTORY: Significant for hypertension, hypothyroidism, hyperlipidemia, restless leg syndrome, gastritis and reflux disease, situational depression, multiple abdominal surgeries, diverticular disease of the colon. The patient had history of enterocutaneous fistula, insomnia. PERSONAL HISTORY: Single. The patient does smoke. Denied alcohol or substance abuse. FAMILY HISTORY: Significant for sister with hypertension, COPD, hyperlipidemia. Father with coronary artery disease, prostate cancer. Mother with dementia, coronary artery disease. REVIEW OF SYSTEMS: As per HPI. PHYSICAL EXAMINATION: GENERAL: Middle-aged white female patient, in mild distress. VITAL SIGNS: Blood pressure 153/89, pulse 93, respiration 25. Temperature was normal. SKIN: Normal turgor. No rash or petechiae. HEENT: Head atraumatic, normocephalic. [place] conjunctivae. Anicteric sclerae. Extraocular muscle movement normal. Fundus cannot be penetrated. Good oral hygiene. No tonsillopharyngeal congestion or exudate. Ears and nose benign. NECK: Supple. No JVD, thyromegaly, or lymphadenopathy. CHEST: Bilateral good air entry present. No rales or rhonchi. CARDIOVASCULAR: S1 and S2 heard. No gallop or thrill. ABDOMEN: Soft, globular. Bowel sounds present. Significant tenderness lower abdomen. The patient does have ventral hernia. No guarding or rigidity. EXTREMITIES: No cyanosis, clubbing. No acute DVT. 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 Able to move all 4 limbs. LABORATORY: The patient admission labs revealed hemoglobin of 17, hematocrit 49.2, WBC count 9.9, platelet count 184,000. PT and PTT were normal. Electrolytes: Potassium was 3.5, magnesium was 1.5. Urinalysis was benign. I did a CT scan of the abdomen and pelvis which revealed a left paracentral ventral abdominal wall hernia containing a loop of bowel that is very similar to previous study. Evidence of constipation and evidence of partial small bowel obstruction. CONSIDERATIONS: 1. Abdominal pain. 2. Partial small bowel obstruction. 3. Constipation. 4. History of cerebrovascular accident. 5. Hypertension. 6. Hyperlipidemia. 7. Chronic obstructive pulmonary disease. 8. Gastritis and reflux disease. PLAN: Admit the patient. IV hydration. Pain management. Clear to full liquids p.o. Oxygen as per protocol. Overall plan discussed at length with the patient and she is in agreement. cc: Moshe Newell MD
[2017-04-20] MEDS ORDERED: MAGNESIUM SULFATE 2 GM/S.W.I. 2 GM/50 ML IVPB IV ONE (20:00)
[2017-04-20] MEDS: DESYREL PO SCH (21:20)
[2017-04-20] MEDS: REMERON PO SCH (21:20)
[2017-04-20] MEDS: REQUIP PO SCH (21:21)
[2017-04-20] MEDS: LIPITOR PO SCH (21:21)
[2017-04-21] MEDS: NS 1,000 ML IV SCH ×3 (00:40→21:51)
[2017-04-21] MEDS: DILAUDID IV PRN ×6 (00:41→21:48)
[2017-04-21] MEDS: DUONEB (A & A) INH SCH ×4 (03:11→22:50)
[2017-04-21] MEDS: SYNTHROID PO SCH (06:24)
[2017-04-21 07:03] LABS: MANUAL DIFF NEEDED? NO
--- NOTE | 2017-04-21 07:08 | PROGRESS NOTE ---
DATE: 04/21/2017 SUBJECTIVE: Ms. Hester is doing some better. She still has some pain. No nausea or vomiting. The patient did have a small bowel movement. No high-grade fever or chills. Denied any chest pain. Patient admitted with partial small bowel obstruction. The patient claims she is hungry and wants to try soft food. PHYSICAL EXAMINATION: Vital Signs: Vital signs noted. Neck: Supple. No JVD. Lungs: Bilateral good air entry present. Occasional wheezing. CVS: S1 and S2 heard. Abdomen: Soft, globular. Vague tenderness in lower abdomen. No guarding or rigidity. Extremities: No cyanosis, clubbing. No acute DVT. REFURBISH TECHNICIAN: Alert, awake. Able to move all 4 limbs. CONSIDERATION: 1. Partial small bowel obstruction. 2. Hypothyroidism 3. History of cerebrovascular accident. 4. Abdominal pain. PLANS: Labs done yesterday reviewed. Lab ordered for today, results are pending. I am going to advance her diet today. Monitor patient. If clinical condition permits, we will plan discharging patient home soon. I am going to try Dulcolax suppository. cc: Moshe Newell MD
[2017-04-21 07:13] LABS: BASO% 0.5 % (0.0-0.8); EOS% 2.3 % (0.0-10.0); HEMATOCRIT 45.1 % (37.0-47.0); LYMPH# 2.88 X1000 (1.2-3.4); LYMPH% 32.4 % (20.5-51.1); MCH 30.4 PG (27-31); MCHC 33.3 g/dL (33-37); MCV 91.5 FL (81-99); MONO# 0.95 X1000 (0.11-0.59); MONO% 10.7 % (1.7-9.3); MPV 11.3 FL (7.4-10.4); NEUT% 54.1 % (42.2-75.2); PLT 161 X1000 (130-400); RBC 4.93 XMIL (4.2-5.4)
[2017-04-21 07:28] LABS: AGAP 10; ALBUMIN 3.3 g/dL (3.5-5.0); ALKALINE PHOSPHATASE 101 U/L (32-104); BUN 7 mg/dL (8-22); CALCIUM 8.2 mg/dL (8.8-10.2); CHLORIDE 107 mmol/L (98-107); COSMO 283; GOT 20 U/L (10-30); GPT 12 U/L (10-36); POTASSIUM 4.5 mmol/L (3.5-5.1); SODIUM 143 mmol/L (136-145); TCO2 26 mmol/L (25-35); TOTAL BILIRUBIN 0.47 mg/dL (0.20-1.00); TOTAL PROTEIN 5.8 g/dL (6.3-8.3)
[2017-04-21 07:33] LABS: FREE T4 1.27 ng/dL (0.93-1.70)
--- NOTE | 2017-04-21 08:52 | Diag Imaging Result Doc PS360 ---
ABDOMEN FLAT/UPRIGHT - 04/21/2017 INDICATION: Abdominal pain TECHNIQUE: Two views COMPARISON: 04/20/2017 FINDINGS: There is decrease in the gas-distended left colon. There are some numerous stable surgical suture lines in the pelvic soft tissues. No bowel obstruction or free air. There are trace pleural effusions. IMPRESSION: No acute disease. Electronically signed by Micah Lewis 04/21/2017 8:50 AM
[2017-04-21] MEDS: DULCOLAX PR ONE ×2 (09:00→09:02)
[2017-04-21] MEDS: SINGULAIR PO SCH (09:02)
[2017-04-21] MEDS: PLAVIX PO SCH (09:02)
[2017-04-21] MEDS: SODIUM CHLORIDE 0.9% INJ SCH (15:21)
[2017-04-21] MEDS: PROTONIX IV SCH (15:21)
[2017-04-21] MEDS: LOVENOX SUBQ SCH (15:21)
[2017-04-21] MEDS: DESYREL PO SCH (21:48)
[2017-04-21] MEDS: LIPITOR PO SCH (21:49)
[2017-04-21] MEDS: REQUIP PO SCH (21:49)
[2017-04-21] MEDS: REMERON PO SCH (21:49)
[2017-04-21] MEDS ORDERED: NS 1,000 ML IV SCH (21:52)
[2017-04-21] MEDS ORDERED: NS 1,000 ML ONE (21:58)
[2017-04-22] MEDS: DUONEB (A & A) INH SCH (03:22)
[2017-04-22] MEDS: SYNTHROID PO SCH (06:06)
[2017-04-22] MEDS: DILAUDID IV PRN (06:06)
[2017-04-22 07:42] VITALS: BP 136/70
[2017-04-22] MEDS: SINGULAIR PO SCH (09:04)
[2017-04-22] MEDS: PLAVIX PO SCH (09:04)
--- NOTE | 2017-04-22 10:57 | DISCHARGE SUMMARY ---
ADMISSION DATE: 04/20/2017 DISCHARGE DATE: 04/22/2017 FINAL DISCHARGE DIAGNOSES: 1. Subacute intestinal obstruction. 2. Abdominal pain. 3. Constipation. 4. Ventral hernia. 5. Chronic obstructive pulmonary disease. 6. Cerebrovascular accident. 7. Hyperlipidemia. 8. Hypothyroidism. 9. Osteoarthritis. 10. Gastritis. 11. Reflux disease. HISTORY OF PRESENT ILLNESS: Ms. Hester is a 66-year-old white female patient admitted with significant crampy abdominal pain, nausea, vomiting, and some diarrhea. I Evaluated the patient in the office. She did have significant tenderness, ventral hernia. She had a history of multiple abdominal surgeries. Decided to admit the patient for observation. Initial workup did reveal constipation and partial small bowel obstruction. The patient was treated conservatively with IV fluid, symptomatic treatment, and pain management. Her clinical condition improved. The patient did have a bowel movement. She was tolerating food well and I decided to discharge patient home today. I repeated abdominal x-ray yesterday and it did show improvement. Her vital signs remained stable. Blood work also improved. OBJECTIVE: Vital Signs: Noted. Lungs: Bibasilar crepitation, occasional wheezing. Cardiovascular: S1 and S2 heard. Abdomen: Soft, globular. Bowel sounds present. Tenderness improved. Extremities: No cyanosis, clubbing. No acute deep venous thrombosis. GREENHOUSE GROWER: Alert, awake. Able to move all 4 limbs. LAB DATA: The patient's lab data done yesterday noted which was stable. CT scan of the abdomen and pelvis. Repeat abdominal x-ray noted and discussed with the patient. Advised patient to take MiraLAX regularly. Smoking cessation. Take medication regularly. Advised to take Pepcid instead of Prilosec, because she is on Plavix. I gave her a few Percocet for the pain. Followup with me in a week. In case of more distress, call us back or go to emergency room. Overall discharge condition satisfactory. cc: Moshe Newell MD
== END 2017-04-22 10:13 | disposition home or self-care (01) ==
LOC: DIRADM → 3N 11:21
PROVIDERS: ADMIT Internal Medicine; ATTEND Internal Medicine

== ENCOUNTER 2018-11-11 14:30 | Observation (INO) ==
[2018-11-11] MEDS ORDERED: DILAUDID IV PRN (15:48)
[2018-11-11 16:17] LABS: URINE SOURCE CLEAN CATCH
[2018-11-11 16:19] LABS: BILIRUBIN URINE NEGATIVE (NEGATIVE); BLOOD URINE NEGATIVE (NEGATIVE); COLOR YELLOW; GLUCOSE URINE NEGATIVE (NEGATIVE); KETONE URINE NEGATIVE (NEGATIVE); LEUKOCYTES URINE NEGATIVE (NEGATIVE); NITRITE URINE NEGATIVE (NEGATIVE); PH URINE 6.5; PROTEIN URINE NEGATIVE (NEGATIVE); SP GRAVITY URINE 1.018; TURBIDITY URINE CLEAR (CLEAR); UROBILINOGEN URINE NORMAL (NORMAL)
[2018-11-11 16:21] LABS: UR EPITHELIAL CELLS <10 /HPF (<10); URINE BACTERIA NEGATIVE /HPF; URINE RBC <10 /HPF (<10); URINE WBC <10 /HPF (<10)
--- NOTE | 2018-11-11 16:51 | Diag Imaging Result Doc PS360 ---
EXAM: CT ABDOMEN/PELVIS W/O CONTRAST INDICATION: lower abd pain TECHNIQUE: This exam was performed using automated exposure control, adjustment of mA or kV according to patient size, and/or use of iterative reconstruction technique. COMPARISON: 04/20/2017 FINDINGS: There is mild atelectasis and fibrosis at the lung bases. There appears to have been a prior cholecystectomy. The liver, spleen, and pancreas are unremarkable. The right kidney is absent. The adrenal glands are unremarkable. The left kidney in the urinary bladder are unremarkable. There has been a prior hysterectomy. There are multiple colonic stable lines that are stable. There are a few distal sigmoid diverticula. There is no evidence of diverticulitis. There is ventral abdominal wall diastases and there is a left ventral wall hernia at the level of the umbilicus that contains a loop of bowel. However, this is stable. It does not appear to be causing a high-grade obstruction. The loop is mildly distended, however. There is some feculent material in small bowel indicating slow bowel transit. There is a small hiatal hernia that is stable. No focal inflammatory changes, free abdominal gas, or free fluid is identified. There is aortoiliac atherosclerotic calcification. There is lumbar spine and hip degenerative arthropathy. IMPRESSION: 1.Left paracentral ventral abdominal wall hernia containing a loop of small bowel with only mild distention. This is very similar to the previous study, however. 2.Feculent material in small bowel suggesting slow bowel transit. However, no significant small bowel distention is identified. 3.Extensive postsurgical changes involving the colon. 4.Other incidental/nonacute findings detailed above. Electronically signed by Danial Boyer 11/11/2018 4:48 PM
[2018-11-11 17:05] LABS: BASO# 0.06 X1000 (0.0-0.2); BASO% 0.6 % (0.0-0.8); EOS% 3.1 % (0.0-10.0); HEMATOCRIT 49.2 % (37.0-47.0); HEMOGLOBIN 16.3 g/dL (12.0-16.0); IMM GRAN# 0.03 X1000 (0.0-0.04); IMM GRAN% 0.3 % (0.0-0.5); LYMPH# 3.67 X1000 (1.2-3.4); LYMPH% 37.9 % (20.5-51.1); MCH 30.4 PG (27-31); MCHC 33.1 g/dL (33-37); MCV 91.8 FL (81-99); MONO% 9.3 % (1.7-9.3); MPV 10.7 FL (7.4-10.4); NEUT# 4.73 X1000 (1.4-6.5); NEUT% 48.8 % (42.2-75.2); PLT 212 X1000 (130-400); RBC 5.36 XMIL (4.2-5.4); RDW 14.3 % (11.5-14.5); WBC 9.69 X1000 (4.8-10.8)
[2018-11-11] MEDS ORDERED: DUONEB (A & A) INH PRN (17:09)
[2018-11-11] MEDS: NS 1,000 ML IV SCH (17:11)
[2018-11-11] MEDS: LEVAQUIN 750 MG/D5W 750 MG/150 ML IVPB IV SCH (17:12)
[2018-11-11] MEDS: PROTONIX IV SCH (17:14)
[2018-11-11] MEDS: SODIUM CHLORIDE 0.9% INJ SCH (17:14)
[2018-11-11] MEDS: DILAUDID IV PRN ×2 (17:20→21:29)
--- NOTE | 2018-11-11 17:23 | Diag Imaging Result Doc PS360 ---
EXAM: FLAT/UPRIGHT ABD/1 VIEW CHEST INDICATION: lower abd pain TECHNIQUE: 4 views COMPARISON: 04/21/2017 FINDINGS: There are nonspecific air-fluid levels in loops of small bowel in colon. Consider ileus versus low-grade obstruction. There is patchy stool throughout the colon. There is no evidence of large volume free abdominal gas. There are multiple metallic staple lines projecting over the lower abdomen. The lungs appear hyperinflated suggesting likely COPD. There is bibasilar subsegmental atelectasis. There is no discrete pleural fluid collection or pneumothorax. The cardiomediastinal silhouette and central vasculature are grossly unremarkable. IMPRESSION: 1.Nonspecific small bowel and colonic air-fluid levels as described. 2.Likely COPD and bibasilar atelectasis. Electronically signed by Danial Boyer 11/11/2018 5:21 PM
[2018-11-11 17:28] LABS: AGAP 10; ALB/GLOB RATIO 1.4; ALBUMIN 3.9 g/dL (3.5-5.0); ALKALINE PHOSPHATASE 103 U/L (32-104); BUN 14 mg/dL (8-22); CALCIUM 9.3 mg/dL (8.8-10.2); CHLORIDE 108 mmol/L (98-107); COSMO 285; CREATININE 0.8 mg/dL (0.5-0.9); ESTIMATED GFR > 60; GLUCOSE 91 mg/dL (70-104); GOT 16 U/L (10-30); GPT 14 U/L (10-36); POTASSIUM 4.4 mmol/L (3.5-5.1); SODIUM 143 mmol/L (136-145); TCO2 25 mmol/L (25-35); TOTAL BILIRUBIN 0.35 mg/dL (0.20-1.00); TOTAL PROTEIN 6.7 g/dL (6.3-8.3)
[2018-11-11] MEDS: LOVENOX SUBQ SCH (17:29)
[2018-11-11] MEDS: REMERON PO SCH (20:40)
[2018-11-11] MEDS: LIPITOR PO SCH (20:41)
[2018-11-11] MEDS: DESYREL PO SCH (20:41)
[2018-11-11] MEDS: REQUIP PO SCH (20:41)
--- NOTE | 2018-11-11 21:24 | HISTORY AND PHYSICAL ---
CHIEF COMPLAINT: Lower abdominal pain. Ms. Hester 68-year-old white female patient complaining of pain in the lower abdomen 3 days, moderate in intensity. At times sharp pain, other times cramp like. The patient did have some nausea, no vomiting. No diarrhea, blood or mucus in the stool. The patient did have bowel movement this morning. The patient does not feel dysuria. No abdominal distention. Patient took [id number] medication without significant relief. I evaluated the patient in the office. The patient did have significant tenderness in the lower abdomen. The patient had previous abdominal surgery, history of ventral hernia, significant risk factor for atherosclerosis. I was concerned and I decided to admit the patient for observation. The patient denied any blood or mucus in the stool. No vaginal discharge. No gross hematuria. No further history available at this time. Denied any typical chest pain, palpitation, orthopnea, PND. Does have chronic cough with scanty sputum production. No runny nose, stuffy nose, sinus drainage. Occasional headache. The patient does have chronic low back pain. No heat or cold intolerance. No focal weakness. Denied any skin rash. No leg swelling. No further history available at this time. Denied any seizure-type episode. ALLERGIES: Morphine. HOME MEDICATIONS: Includes nebulizer treatment, Lipitor, Plavix, Synthroid, Remeron, Singulair, Requip, Prilosec, trazodone. PAST MEDICAL HISTORY: Significant for hypertension, hypothyroidism, hyperlipidemia, COPD, osteoarthritis, history of CVA, history of partial small bowel obstruction, incisional hernia, abdominal surgery complicated by fistula, small bowel obstruction, COPD, rhinitis. SOCIAL HISTORY: , patient does smoke. Denied alcohol or substance abuse. Fairly independent in activities of daily living. REVIEW OF SYSTEMS: As per HPI. PHYSICAL EXAMINATION: Elderly white female patient in mild distress. Blood pressure 124/79, pulse 75, respiration 20, temperature 97.9 degrees. SKIN: Senile turgor. No rash or petechiae. HEENT: Head atraumatic, normocephalic. [place] conjunctivae. Anicteric sclerae. Extraocular muscle movement normal. Fundus cannot be penetrated. Good oral hygiene. No tonsillopharyngeal congestion or exudate. Ears and nose benign. NECK: Supple. No JVD, thyromegaly or lymphadenopathy. CHEST: Bilateral good air entry present. Bilateral occasional wheezing. No movement of accessory muscle of respiration. CARDIOVASCULAR: S1 and S2 heard. No gallop or thrill. ABDOMEN: Soft, globular. Bowel sounds present. Significant tenderness lower abdomen. No guarding or rigidity. EXTREMITIES: No cyanosis, clubbing. No acute DVT. Peripheral pulsation intact. Vague tenderness lumbosacral spine. 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 CONSIDERATION: 1. Lower abdominal pain with significant tenderness. Consideration diverticulitis, small bowel obstruction. The patient does have a history of ventral hernia. 2. Urinary tract infection. The patient had history of urinary tract infection without dysuria. 3. Chronic obstructive pulmonary disease . 4. Hypothyroidism . 5. Low back pain. 6. Restless legs syndrome. 7. Gastritis and reflux disease. 8. Hypothyroidism. PLAN: Check appropriate lab, x-ray, CT scan of the abdomen and pelvis. Close observation, pain management, IV hydration, IV antibiotics. If needed will consider surgical consult. CT scan of the abdomen did reveal left paracentral ventral abdominal wall hernia containing loop of small bowel with only mild distention which was similar as previous study, extensive postsurgical changes. Other consideration ischemic bowel. Abdominal x-ray likely COPD and basilar atelectasis. LABORATORY DATA: CBC. WBC count 9.69, hemoglobin 16.3, hematocrit 49.2, platelet count 212,000. Urinalysis was benign. CMP result is pending. I started patient on Levaquin, bronchodilator treatment, oxygen, pain management DVT and GI prophylaxis. Overall plan discussed with the patient. If clinical condition permits will plan discharging patient home soon. cc: Moshe Newell MD
[2018-11-12] MEDS: DILAUDID IV PRN ×6 (01:33→22:51)
[2018-11-12] MEDS: NS 1,000 ML IV SCH ×3 (01:33→15:43)
[2018-11-12] MEDS: SYNTHROID PO SCH ×2 (05:36→06:03)
[2018-11-12 07:18] LABS: BASO# 0.03 X1000 (0.0-0.2); BASO% 0.4 % (0.0-0.8); EOS% 2.7 % (0.0-10.0); HEMATOCRIT 46.9 % (37.0-47.0); HEMOGLOBIN 15.2 g/dL (12.0-16.0); LYMPH# 2.51 X1000 (1.2-3.4); LYMPH% 34.1 % (20.5-51.1); MCH 30.3 PG (27-31); MCHC 32.4 g/dL (33-37); MCV 93.4 FL (81-99); MONO# 0.79 X1000 (0.11-0.59); MONO% 10.7 % (1.7-9.3); MPV 10.6 FL (7.4-10.4); NEUT# 3.83 X1000 (1.4-6.5); NEUT% 52.1 % (42.2-75.2); PLT 176 X1000 (130-400); RBC 5.02 XMIL (4.2-5.4); RDW 14.5 % (11.5-14.5); WBC 7.36 X1000 (4.8-10.8)
[2018-11-12 07:47] LABS: FREE T4 1.13 ng/dL (0.93-1.70); TSH 3.57 uIUmL (0.27-4.20)
[2018-11-12 07:59] LABS: AGAP 10; ALB/GLOB RATIO 1.4; ALBUMIN 3.4 g/dL (3.5-5.0); ALKALINE PHOSPHATASE 89 U/L (32-104); BUN 10 mg/dL (8-22); CALCIUM 7.7 mg/dL (8.8-10.2); CHLORIDE 110 mmol/L (98-107); COSMO 283; CREATININE 0.8 mg/dL (0.5-0.9); ESTIMATED GFR > 60; GLUCOSE 84 mg/dL (70-104); GOT 14 U/L (10-30); GPT 10 U/L (10-36); POTASSIUM 3.9 mmol/L (3.5-5.1); SODIUM 143 mmol/L (136-145); TCO2 23 mmol/L (25-35); TOTAL BILIRUBIN 0.38 mg/dL (0.20-1.00); TOTAL PROTEIN 5.9 g/dL (6.3-8.3)
--- NOTE | 2018-11-12 08:34 | Diag Imaging Result Doc PS360 ---
EXAM: CHEST-2 VIEWS INDICATION: hypoxia TECHNIQUE: 2 views COMPARISON: 11/11/2018 FINDINGS: The mild subsegmental atelectasis at the lung bases appears to be stable to marginally worse. There are probably small effusions bilaterally. Otherwise, no new consolidation is identified. Cardiac silhouette is stable. IMPRESSION: Stable to marginal worsening of bibasilar atelectasis and development of small effusions. Electronically signed by Danial Boyer 11/12/2018 8:32 AM
--- NOTE | 2018-11-12 08:36 | Diag Imaging Result Doc PS360 ---
EXAM: ABDOMEN FLAT/UPRIGHT INDICATION: sbo TECHNIQUE: 2 views COMPARISON: 11/11/2018 FINDINGS: The mild gaseous distention of bowel is stable to marginally improved. No large volume free abdominal gas is identified. The abdomen is stable otherwise. IMPRESSION: Stable to marginal improvement of mild gaseous distention of bowel. Electronically signed by Danial Boyer 11/12/2018 8:33 AM
[2018-11-12] MEDS: SINGULAIR PO SCH (09:45)
[2018-11-12] MEDS: PLAVIX PO SCH (09:45)
--- NOTE | 2018-11-12 11:38 | PROGRESS NOTE ---
DATE: 11/12/2018 SUBJECTIVE: The patient still complains of some lower abdominal pain. She has been passing gas, but has not had a bowel movement this morning. OBJECTIVE: Vital Signs: Afebrile. Pulse 65, respirations 18, blood pressure 124/66, and O2 saturation on 2 liters 96% to 98%. Cardiovascular: RRR. Lungs: Distant breath sounds, CTA. Abdomen: Active bowel sounds. Soft. Minimal distention. Tender diffusely across the low abdomen, a little bit more prominent right low abdomen. Extremities: No calf tenderness, cords or edema. DIAGNOSTIC DATA: CT abdomen and pelvis results reviewed from yesterday revealed left paracentral ventral abdominal wall hernia containing a small bowel loops, but with only mild distention, similar to her previous studies. Labs show normal urinalysis yesterday. Sodium 143, potassium 3.9, chloride 110, CO2 of 23, BUN 10, creatinine 0.8, glucose 84, calcium 7.7, total bilirubin 0.38, AST 14, ALT 10, alkaline phosphatase 89, total protein 5.9, albumin 3.4. Thyroid function tests normal. White count 7.3, hemoglobin 15.2, platelets 176,000. Urine culture and blood cultures thus far are in progress and are negative. Chest x-ray yesterday reveals some bibasilar atelectasis with small pleural effusions. ASSESSMENT: 1. Lower abdominal pain with tenderness. 2. Left ventral hernia, longstanding, with no apparent change on CT scan. 3. Recent urinary tract infection by report. 4. Chronic obstructive pulmonary disease. 5. Hypothyroidism. 6. Low back pain. 7. Restless legs syndrome. 8. Gastritis and gastroesophageal reflux disease. 9. Hypothyroidism. PLAN: For now, continue low-dose IV fluids, IV antibiotics in the form of Levaquin, monitoring her clinically for worsened symptoms. Repeat labs in the morning. Continue clear liquids. cc: MD Moshe Palomino MD
[2018-11-12] MEDS: ZOFRAN IV PRN ×2 (14:37→18:36)
[2018-11-12] MEDS: LEVAQUIN 750 MG/D5W 750 MG/150 ML IVPB IV SCH (15:43)
[2018-11-12] MEDS: SODIUM CHLORIDE 0.9% INJ SCH (15:45)
[2018-11-12] MEDS: PROTONIX IV SCH (15:45)
[2018-11-12] MEDS: LOVENOX SUBQ SCH (17:52)
[2018-11-12] MEDS: DESYREL PO SCH (20:08)
[2018-11-12] MEDS: REMERON PO SCH (20:09)
[2018-11-12] MEDS: LIPITOR PO SCH (20:09)
[2018-11-12] MEDS: REQUIP PO SCH (20:17)
[2018-11-13] MEDS: ZOFRAN IV PRN ×3 (01:07→20:35)
[2018-11-13] MEDS: SYNTHROID PO SCH (06:32)
[2018-11-13] MEDS: DILAUDID IV PRN ×5 (06:32→23:07)
[2018-11-13 07:13] LABS: BASO# 0.05 X1000 (0.0-0.2); BASO% 0.6 % (0.0-0.8); EOS# 0.45 X1000 (0.0-0.7); EOS% 5.1 % (0.0-10.0); HEMATOCRIT 46.3 % (37.0-47.0); HEMOGLOBIN 14.8 g/dL (12.0-16.0); IMM GRAN# 0.02 X1000 (0.0-0.04); IMM GRAN% 0.2 % (0.0-0.5); LYMPH# 3.08 X1000 (1.2-3.4); LYMPH% 34.8 % (20.5-51.1); MCH 30.1 PG (27-31); MCV 94.3 FL (81-99); MONO# 0.98 X1000 (0.11-0.59); MONO% 11.1 % (1.7-9.3); MPV 10.9 FL (7.4-10.4); NEUT# 4.27 X1000 (1.4-6.5); NEUT% 48.2 % (42.2-75.2); PLT 187 X1000 (130-400); RBC 4.91 XMIL (4.2-5.4); RDW 14.3 % (11.5-14.5); WBC 8.85 X1000 (4.8-10.8)
[2018-11-13 07:44] LABS: AGAP 9; BUN 5 mg/dL (8-22); CALCIUM 8.3 mg/dL (8.8-10.2); CHLORIDE 107 mmol/L (98-107); COSMO 276; CREATININE 0.8 mg/dL (0.5-0.9); ESTIMATED GFR > 60; GLUCOSE 94 mg/dL (70-104); POTASSIUM 3.7 mmol/L (3.5-5.1); SODIUM 140 mmol/L (136-145); TCO2 24 mmol/L (25-35)
[2018-11-13] MEDS: SINGULAIR PO SCH (09:48)
[2018-11-13] MEDS: PLAVIX PO SCH (09:48)
[2018-11-13] MEDS: NS 1,000 ML IV SCH ×2 (09:49→11:28)
[2018-11-13] MEDS ORDERED: TYLENOL PO PRN (11:02)
[2018-11-13] MEDS ORDERED: NORCO-7.5 PO PRN (11:04)
--- NOTE | 2018-11-13 11:33 | PROGRESS NOTE ---
DATE: 11/13/2018 SUBJECTIVE: Patient complains of headache that is typical for her as she has these quite often. She would like something for pain for that. She is still having some mild lower abdominal discomfort, but says her appetite is good and she wants to try to eat. She has had no nausea, vomiting. No bowel movement yesterday. OBJECTIVE: Vitals: Afebrile, pulse 78, respirations 22, blood pressure 92/52, O2 saturation on 2 L 91%. CARDIOVASCULAR: Regular rhythm and rate. Lungs: Clear. Abdomen: Soft. Active bowel sounds. Mild tenderness in the suprapubic area. No mass or organomegaly. No rebound or guarding. Extremities: No calf tenderness, cords or edema. LABORATORY: Blood cultures and urine culture from 11/11/2018 are negative. Sodium 140, potassium 3.7, chloride 107, CO2 24, BUN 5, creatinine 0.8, calcium 8.3. White count 8.85, hemoglobin 14.8, platelets 187,000. ASSESSMENT: 1. Lower abdominal pain with tenderness. 2. Headache. 3. Left ventral hernia, longstanding. No change on CT scan. 4. Recent UTI outpatient by report. 5. Chronic obstructive pulmonary disease. 6. Hypothyroidism. 7. Low back pain. 8. Restless leg syndrome. 9. Gastritis and GERD. 10. Hypothyroidism. PLAN: Decrease IVF and increase her diet up to regular diet. Continue IV Levaquin. Check flat and upright of the abdomen with 1 view of the chest. We will give her Tylenol as needed for headache and add [place] for severe headache pain. Continue to follow the patient clinically. cc: MD Moshe Palomino MD
--- NOTE | 2018-11-13 12:29 | Diag Imaging Result Doc PS360 ---
EXAM: FLAT/UPRIGHT ABD/1 VIEW CHEST INDICATION: low abd pain TECHNIQUE: 3 views COMPARISON: 11/12/2018 FINDINGS: The mild gaseous distention of the bowel, predominantly colonic, is essentially stable. There is no evidence of large volume free abdominal gas. Otherwise, the abdomen is essentially stable as compared to the previous study. Mild bibasilar subsegmental atelectasis appears to have improved slightly. No new consolidation is identified. The cardiac silhouette is stable. IMPRESSION: 1.Stable abdomen. 2.Improvement in the mild bibasilar atelectasis. Electronically signed by Danial Boyer 11/13/2018 12:27 PM
[2018-11-13] MEDS ORDERED: DULCOLAX PR ONE (12:30)
[2018-11-13] MEDS: LEVAQUIN 750 MG/D5W 750 MG/150 ML IVPB IV SCH (18:26)
[2018-11-13] MEDS: SODIUM CHLORIDE 0.9% INJ SCH (18:29)
[2018-11-13] MEDS: PROTONIX IV SCH (18:29)
[2018-11-13] MEDS: LOVENOX SUBQ SCH (18:29)
[2018-11-13] MEDS: LIPITOR PO SCH (20:34)
[2018-11-13] MEDS: REMERON PO SCH (20:35)
[2018-11-13] MEDS: REQUIP PO SCH (20:35)
[2018-11-13] MEDS: DESYREL PO SCH (20:35)
[2018-11-14] MEDS: SYNTHROID PO SCH (06:54)
[2018-11-14] MEDS ORDERED: LASIX IV ONE (07:23)
--- NOTE | 2018-11-14 07:30 | EKG Report ---
Test Performed on : 11/12/2018 11:20:41 AM Test Reason : CP Blood Pressure : / mmHG Vent. Rate : 061 BPM Atrial Rate : 061 BPM P-R Int : 140 ms QRS Dur : 078 ms QT Int : 384 ms P-R-T Axes : 062 -29 -11 degrees QTc Int : 386 ms Sinus rhythm. with premature atrial complexes. with aberrant conduction. Nonspecific T wave abnormality Abnormal ECG When compared with ECG of 20-APR-2017 13:52, aberrant conduction. is now present T wave inversion now evident in Inferior leads Nonspecific T wave abnormality now evident in Anterior leads QT has shortened Unconfirmed Result
[2018-11-14] MEDS: PLAVIX PO SCH (09:13)
[2018-11-14] MEDS: SINGULAIR PO SCH (09:13)
[2018-11-14 11:15] VITALS: BP 113/62
[2018-11-14] MEDS: NS 1,000 ML IV SCH (11:23)
--- NOTE | 2018-11-14 15:05 | DISCHARGE SUMMARY ---
ADMISSION DATE: 11/11/2018 DISCHARGE DATE: 11/14/2018 FINAL DISCHARGE DIAGNOSES: 1. Ventral hernia. 2. Subacute intestinal obstruction. 3. Chronic obstructive pulmonary disease. 4. Gastritis and reflux disease. 5. Hypothyroidism. 6. History of transient ischemic attack. 7. Cerebrovascular accident. 8. Hypertension. 9. Low back pain. HISTORY OF PRESENT ILLNESS: Ms. Hester is a 68-year-old, white female patient admitted with pain in the lower abdomen and low back pain. Some nausea. I evaluated the patient in the office. The patient had history of subacute intestinal obstruction, ventral hernia. Patient was quite tender in the lower abdomen. I decided to admit the patient for further care. HOSPITAL COURSE: Patient was admitted to medical floor. We did appropriate labs and CT scan. Initially, patient was treated with IV fluid pain management and IV antibiotics. Her clinical condition stabilized. The patient was feeling better. She did have a bowel movement. The patient was feeling hungry and we fed her and patient tolerated food well. PHYSICAL EXAMINATION: Vital Signs: Her vital signs blood pressure 129/58, pulse 96, respirations normal. O2 saturation was 83 at time. Most of the time O2 saturation was satisfactory on oxygen. The patient does have oxygen at home. Neck: Supple. No JVD. Lungs: Bilateral good air entry present, Cardiovascular: S1 and S2 heard. Abdomen: Soft, globular. Bowel sounds present. Tenderness in the lower abdomen improved. No guarding or rigidity. Extremities: No cyanosis, clubbing, edema. Central Nervous System: Alert, awake, able to move all 4 limbs. LABORATORY DATA: Urinalysis was benign. CBC: Last hemoglobin 14.8, hematocrit 46.3. WBC count 8.85, platelet 187,000. Electrolytes were fairly benign. BUN was 5. Creatinine 0.8. TSH 3.57, free T4 1.13, magnesium 1.7. CBC results reviewed. CT scan of the abdomen and pelvis. Left paracentral ventral abdominal wall hernia containing loop of small bowel with only mild distention which is similar to previous study. Feculent material in the small bowel as. Extensive postsurgical changes. Lumbar spine and hip degenerative arthroplasty. ASSESSMENT/PLAN: Overall patient is doing better. Tolerating food well. She did have a bowel movement. Lab is stable. I am planning to discharge patient home. We will continue on antibiotics, pain medicine and plenty of liquids orally. DISCHARGE INSTRUCTIONS: Follow up with me in a week. In case of more distress, call us back or go to the emergency room. Continue home medicine and bronchodilator treatment, and oxygen. In case of more distress, call us back or go to emergency room. cc: Moshe Newell MD
== END 2018-11-14 14:04 | disposition home or self-care (01) ==
LOC: DIRADM → 3N 14:30
PROVIDERS: ADMIT Internal Medicine; ATTEND Internal Medicine
CPT/HCPCS: 71020; 71046; 74019; 74020; 74022; 74176; 80048; 80053; 81001; 83735; 84439; 84443; 85025; 87040; 87088; 93005; 94640; 94761; A9270; C9113; J1170; J1650; J1940; J1956; J2405; J7030; S0164